=== PATIENT | male | born 1950 | race Caucasian/White ===

== ENCOUNTER 2016-11-29 05:07 | Inpatient (IN) | payer OTHER ==
[~2016-11-29] VITALS: Ht 177.8 cm; Wt 72.6 kg
[~2016-11-29 05:07] MED LIST: ACETAMINOPHEN500 M4 PO; ASPIRIN EC81 M1 PO; AUGMENTIN 875-1 EACH PO; PERCOCET 5-3251 EACH PO; PROBIOTIC1 EACH PO
--- NOTE | 2016-11-29 13:46 | Admission Core Measures ---
Admission Meds I reviewed the following Meds: Current Medications Sig/Amy Start time Last Medication Dose Stop Time Status Admin Cefazolin Sodium 2,000 MG ONCE 11/29 0000 NR (Kefzol-Ancef Inj) 11/29 2358 Metronidazole 500 MG ONCE 11/29 0000 NR (Flagyl) 11/29 2358 Sodium Chloride 100 ML (Normal Saline 0.9%) Acute Coronary Syndrome Inclusion Criteria ACS Diagnosis No Inpatient Core Measures LDL Reminder: If No, please order W/I first 24hr of stay Congestive Heart Failure Inclusion Criteria CHF Diagnosis No Cerebrovascular accident Inclusion Criteria CVA/TIA Diagnosis No Inpatient Core Measures Bedside Swallow Eval Reminder: If BSE failed, place ST order Antithrombotic Reminder: Order Antithrombotic Medication by end of day 2 Antithrombotic Reminder: Document Reason Antithrombotic Not ordered by end of day 2 AFIB/Flutter Reminder: If Present, add to problem list AFIB/Flutter Reminder: Order Anticoag Medication for pts with AFIB/Flutter Atherosclerosis Reminder: If Present, add to problem list LDL Reminder: If No, please order W/I first 24hr of stay PT Order Reminder: If No, please order Venous thromboembolism Inpatient Core Measures VTE Risk Factors: Age > 40, Surgery No [facility] VTE prophylaxis d/t No contraindications No VTE Pharm Prophylaxis d/t No contraindications Inclusion Criteria - Per Current guidelines, there needs to be overlap - treatment for the first 5 days of Warfarin therapy. - Parenteral Anticoagulation (IV or SC) needs to be - given along with Warfarin therapy. VTE Diagnosis No VTE Type NONE VTE Confirmed by (Test) NONE Problem List As ranked by this Provider includes Assessment & Plan 1. Diverticulitis 2. Colostomy status 3. History of colostomy reversal HOME MEDS Home Med List Aspirin (Ecotrin*) 81 MG TABLET. 1 TAB PO DAILY BLOOD THINNER
--- NOTE | 2016-11-29 13:50 | Operative Report ---
Operative/Inv Procedure Report Surgery Date: 11/29/16 Name of Procedure: Laparoscopic takedown/reversal of an end colostomy Pre-Operative Diagnosis: Diverticulitis s/p Hartmanns procedure Post-Operative Diagnosis: Same Estimated Blood Loss: 50ml to 100ml Surgeon/Proof Tester: AUGUSTUS CARBAJAL DO, MD Anesthesia: general endotracheal tube IV Fluids: 1500 cc Drains: 10 Fr RLQ TIAN Drain Specimens: Stoma Complications: None Condition: Stable Operative Indication: This is a 66-year-old male who 6 months status post Camacho's procedure for perforated diverticulitis. Patient underwent appropriate preoperative workup for a colostomy reversal. A laparoscopic possible open colostomy takedown was discussed in detail. All risks including but not limited to bleeding, infection , anastomotic breakdown/complications, DVT/PE, possible need for another ostomy, and mortality were discussed in detail. The patient understood everything and decided to proceed. Operative/Procedure Note Note: The patient was brought to the operating room and placed on operating table in supine position. Venodyne stockings were placed and adequate general endotracheal anesthesia was obtained. The patient was prepped and draped in standard surgical fashion. His colostomy site was closed using running silk suture and the rectal stump was irrigated using Betadine mixed with saline. Patient was placed in lithotomy. A 2 cm midline incision was made just above the umbilicus and carried down through the subcutaneous tissue to the fascia. The fascia was divided in the midline and once we entered the peritoneum 2 stay 0 Vicryl sutures were placed on each side and a 12 mm blunt port was inserted. The abdominal cavity was insufflated to 15 mmHg and a 10 mm 30 lap scope was introduced. Upon initial examination we did note some thin adhesions throughout the abdominal cavity. 5 mm ports are placed, one in the right lateral position and one in the right lower quadrant. Adhesiolysis was then performed taking down all the omentum off the anterior abdominal wall and bringing the small bowel out of the pelvis. We identified the rectal stump and it appeared to be that a long segment was present that was easily mobilized and was coming out of the pelvis free of tension. The proximal colon appeared healthy without any evidence of diverticulosis and once again was adequately mobilized to reach well down into the pelvis. Once all the mobilization was complete we brought our attention to the ostomy site. The skin around the colostomy was incised and the colostomy was circumferentially dissected away from the subcutaneous tissue and the fascia until it was freely up in the air. Segment of the descending colon was resected just proximal to the ostomy site. The colon was then returned into the abdominal cavity, ostomy site fascia was closed using 0 Vicryl suture, and the skin was closed using meena. The abdominal cavity was then reinsufflated and we examined the distal stump and the proximal colon. Given the adequate room/mobilization of the colon and the presence of a long blind stump, a decision was made to do a side to side colocolonic anastomosis. The right lateral port site was upsized to a 12 mm port. A colotomy was made on the descending colon approximately 5 cm from the staple line on the antimesenteric side and another colotomy was made on the distal stump on the antimesenteric side as well. Then using a 60 mm purple Endo RAKESH load a side to side anastomosis was created. The anastomosis was examined and appeared intact and widely patent. The common opening was closed using 2-0 Vicryl suture in a running fashion double layer. At the completion we filled the pelvis with saline and performed an air leak test, no leak was noted. All the fluid and the pelvis was suctioned out, the anastomosis was examined and appeared intact and patent. A 10 Slovak TIAN drain was placed through the right lower quadrant incision into the pelvis. All ports removed under direct visualization, no obvious bleeding was noted. The periumbilical incision was closed using 0 Vicryl suture. The ostomy site was opened up again and was reclosed using a 0 Maxon suture in a running fashion. Ostomy site was irrigated. All incisions were closed using meena. Ostomy site was packed in between the meena with 1 inch iodoform packing. Sterile dressings were placed. The patient was successfully extubated and transferred to the recovery room in stable condition. The patient tolerated the procedure well complications. Findings: Healthy proximal and distal colon, no further evidence of diverticulosis CC: DIDI TATE,JACINTO
--- NOTE | 2016-11-29 15:40 | PN- General Surgery ---
Subjective Subjective: POST-OP NOTE: No complaints. Reports expected incisional pain. No nausea at this time. Denies dizziness. No shortness of breath. No chest pains. Objective Vital Signs and I&Os PACU flowsheet reviewed, u/o adequate Physical Exam: General - alert & oriented x 3. comfortable. no acute distrss. Lungs - clear bilaterally. no w/r/r. Cardiac - s1s2. reg. Abdomen - dressings c/d/i. TIAN drain with serosang drainage. expected genoveva- incisional tenderness. - hunter draining clear, yellow urine. Extremities - warm bilaterally. no c/c/e. calves soft and nontender b/l. Current Medications: Current Medications Sig/Amy Start time Last Medication Dose Route Stop Time Status Admin Cefazolin Sodium 2,000 MG ONCE 11/29 0000 NR IV 11/29 2358 Metronidazole 500 MG ONCE 11/29 0000 NR Sodium Chloride 100 ML IV 11/29 2358 Assessment/Plan Assessment/Plan This 66 year old white male with hx hartmanns procedure for diverticulitis is POD#0 s/p laparoscopic takedown/reversal of an end colostomy ok for sips of clears as tolerated genoveva-operative ancef / flagyl x 2 doses morphine prn pain tylenol / toradol prn pain hep sc - dvt ppx hunter for strict i/o's, to be removed in the morning monitor TIAN drain output f/u am labs colostomy dressing with packing, to be changed POD#2 will d/w Core Measures/Miscellaneous Venous Thromboembolism VTE Risk Factors: Age > 40, Surgery VTE Contraindications: No Contraindications VTE Diagnosis: No VTE Type: NONE VTE Confirmed by (Test): NONE Beta Farhad Is Beta Farhad a Home Med? No Antibiotics Is Patient on Antibiotics? Yes If Yes: prophylaxis
--- NOTE | 2016-11-29 15:44 | NUR ---
PT ARRIVED TO FLOOR FROM PACU. VSS. NO C/O NAUSEA OR PAIN. 4 SURGICAL BANDAGES TO ABD AND TIAN DRAIN. SCANT RED DRAINAGE FROM 2 DRESSINGS ON L ABD. OUTLINED BY THIS RN. WILL CONTINUE TO MONITOR. IV FLUIDS INFUSUING PER EMAR. PT ORIENTED TO ROOM AND EDUCATED MEDICATION RECONCILIATION TECHNICIAN MASCORRO.
[2016-11-29 16:00] VITALS: BP 130/70
[2016-11-29 18:30] VITALS: BP 146/82
[2016-11-29 20:14] VITALS: BP 140/80
[2016-11-29 22:00] VITALS: BP 122/64
[2016-11-30 02:24] VITALS: BP 100/64
--- NOTE | 2016-11-30 07:26 | PN- Student ---
KINA SEAY 11/30/16 0713: Subjective Subjective: Patient is awake, alert, comfortable. Reports some sensation of bloating in the abdomen but denies any pain. Denies SOB/chest pain/fevers/headaches/dyspnea. Has not passed gas yet, is tolerating clears diet well Objective Objective: Vital Signs Result Date Time Pulse Ox 96 12/01 223 B/P 100/64 12/01 223 O2 Delivery Room Air 12/01 223 Temp 99.0 12/01 223 Pulse 69 12/01 223 Resp 20 12/01 223 Intake & Output 11/30 0000 11/29 1600 11/29 0800 Intake Total 850 Output Total 900 Balance -50 Intake, IV 800 Intake, Oral 50 Output, Urine 900 Patient 160 lb Weight General: awake, alert, oriented, NAD Lungs: CTAB, no wheeze/rales/rhonchi Heart: RRR, no M,R,G Abdomen: soft, nondistended, non-edematous, non-erythematous, hypoactive bowel sounds, mildy tender to palpation around incisions, no guarding/rebound Wounds: dressings clean, dry and intact, mildly tender Drains: [address], recently emptied, small collection of serosanguanous fluid Extremities: warm, no erythema/edema, no calf tenderness bilaterally, gross motor and sensory function in tact, ALPS in place Traylor in place - ~ 1L clear yellow urine Results Results: Microbiology 11/29 1045 URINE ROUT: Urine Culture - RECD Assessment/Plan Assessment: This is a 66 y/o male POD #1 laparoscopic colostomy reversal with history significant for Camacho's for perforated diverticulitis. Plan: Diet: Continue clears until return of bowel function Pain: Tylenol PRN DVT ppx: ?subq heparin, ALPS while in bed, OOB and ambulate as tolerated Abx: ? one dose ancef/flagyl for infection prophylaxis Traylor: remove this am Continue TIAN drain Strict I's and O's Stoma packing - change POD #2 Will discuss with attending KAYLEN CUTLER 11/30/16 1231: Assessment/Plan Assessment: Discussed with Dr. Cates, refer to note written by Raheel Black PA-C His addendum to note written by Raheel Luberti PA-C is as follows: ATTENDING ADDENDUM: Patient seen and examined, agree with above. Doing well, no complaints, no GI fxn. AVSS UO good TIAN serosanguinous. Abd-soft. Labs pending. Cont clears, await GI fxn, Colace BID, D/C TIAN later today.
--- NOTE | 2016-11-30 07:38 | PN- General Surgery ---
See Addendum Subjective Subjective: Patient is comfortable, he feels well, he has minimal pain. No flatus yet. Tolerating clears Objective Vital Signs and I&Os Vital Signs Date Time Temp Pulse Resp B/P B/P Pulse O2 O2 Flow FiO2 Mean Ox Delivery Rate 12/01 223 99.0 69 20 100/64 96 Room Air 11/29 2200 98.4 74 20 122/64 97 Room Air 11/29 2013 98.2 68 20 140/80 97 Room Air 11/29 1830 98.3 72 20 146/82 98 Room Air 11/30 1599 98.8 66 18 130/70 98 Room Air Intake & Output 11/30 0800 11/30 0000 11/29 1600 11/29 0800 11/29 0000 11/28 1600 Intake Total 1000 850 Output Total 30 900 Balance 970 -50 Intake, IV 800 800 Intake, Oral 200 50 Output, 30 Drainage Output, Urine 900 Patient 160 lb Weight Physical Exam: Well-developed well-nourished no apparent distress. HEENT: Atraumatic, extraocular motion intact Neck: Supple, no lymphadenopathy Heart: Regular rate and rhythm Respiratory: No respiratory distress clear to auscultation bilateral Abdomen: Soft, mild tenderness in the midline Dressings clean dry and intact Hypoactive bowel sounds Extremities: No edema, no calf pain Neuro: Alert and oriented x3 Psych: Mood affect normal, normal memory normal judgment. Skin: Warm and dry, no rash on exposed skin TIAN drain with 30 mL of output overnight that is bloody. Right-sided TIAN drain noted in place, draining small amount of thin bloody discharge Results Last 48 Hours of Labs: Laboratory Tests 11/30 0710 Chemistry Sodium Pending Potassium Pending Chloride Pending Carbon Dioxide Pending Anion Gap Pending BUN Pending Creatinine Pending BUN/Creatinine Ratio Pending Hematology CBC w Diff Pending WBC Pending RBC Pending Hgb Pending Hct Pending MCV Pending MCH Pending RDW Pending Plt Count Pending MPV Pending PUBS MCHC Pending Assessment/Plan Assessment/Plan 66 yo male hx hartmanns procedure for diverticulitis is POD#1 s/p laparoscopic takedown/reversal of an end colostomy Continue clears, await return of bowel function genoveva-operative ancef / flagyl x 2 doses completed morphine prn pain tylenol / toradol prn pain hep sc - dvt ppx DC Traylor DC IV fluids as patient is tolerating adequate by mouth monitor TIAN drain output f/u am labs Out of bed ad arline. colostomy dressing with packing, to be changed POD#2 will d/w Core Measures/Miscellaneous Venous Thromboembolism VTE Risk Factors: Age > 40, Surgery VTE Contraindications: No Contraindications VTE Diagnosis: No VTE Type: NONE VTE Confirmed by (Test): NONE Beta Farhad Is Beta Farhad a Home Med? No Antibiotics Is Patient on Antibiotics? Yes If Yes: prophylaxis
[2016-11-30 07:44] VITALS: BP 110/70
[2016-11-30 08:40] LABS: ABSOLUTE BASOPHIL COUNT 0 /CUMM (0.0-0.2); ABSOLUTE EOSINOPHIL COUNT 0 /CUMM (0.0-0.7); ABSOLUTE GRANULOCYTE CT 17.1 /CUMM (1.4-6.5); ABSOLUTE LYMPH COUNT 1.4 /CUMM (1.2-3.4); ABSOLUTE MONOCYTE COUNT 1.3 /CUMM (0.10-0.60); BASOPHIL % 0 % (0.0-2.0); EOSINOPHIL % 0 % (0-5); HEMATOCRIT 37.8 % (42-52); MEAN CORPUSCULAR HGB 29.5 PG (27.0-31.0); MEAN CORPUSCULAR HGB CONC 33.3 G/DL (33.0-37.0); MEAN CORPUSCULAR VOLUME 88.6 FL (80.0-94.0); MEAN PLATELET VOLUME 8.8 FL (7.4-10.4); PLATELET COUNT 255 /CUMM (130-400); RBC DISTRIBUTION WIDTH 14.6 % (11.5-14.5); RED BLOOD CELL CT 4.27 /CUMM (4.70-6.10); WHITE BLOOD CELL COUNT 19.8 /CUMM (4.8-10.8)
[2016-11-30 08:59] LABS: GRANULOCYTE % 86.6 % (42.2-75.2)
[2016-11-30 14:31] VITALS: BP 120/70
[2016-11-30 22:06] VITALS: BP 140/74
[2016-12-01 06:29] VITALS: BP 126/66
--- NOTE | 2016-12-01 07:50 | PN- General Surgery ---
Subjective Subjective: Tolerating clears. Trying fulls this morning. "Hungry". No nausea. Passing flatus. Voiding well. Ambulating well. No dizziness. No shortness of breath. No chest pains. Not requiring narcotic pain medication. Eager to try food. Anticipates discharge to home tomorrow with services. Objective Vital Signs and I&Os Vital Signs Date Time Temp Pulse Resp B/P B/P Pulse O2 O2 Flow FiO2 Mean Ox Delivery Rate 12/01 06 99.4 66 20 126/66 98 Room Air 11/30 220 99.1 63 20 140/74 98 Room Air 11/30 1431 98.8 65 20 120/70 94 Room Air Intake & Output 12/01 0800 12/01 0000 11/30 1600 11/30 0811/30 0000 11/29 1600 Intake Total 650 1000 850 Output Total 17 530 1480 900 Balance -17 120 -480 -50 Intake, IV 800 800 Intake, Oral 650 200 50 Output, 17 30 30 Drainage Output, Urine 500 1450 900 Patient 160 lb Weight Physical Exam: General - alert & oriented x 3. out of bed to chair. Lungs - clear bilaterally. no w/r/r. Cardiac - s1s2. reg. Abdomen - soft. active bowel sounds throughout. TIAN drain with scant serosang drainage. colostomy site dressing changed / packing removed. no erythema or gross exudates. packing lightly replaced. interrupted meena approximating site. Expected genoveva-incisional drainage. Extremities - warm bilaterally. no c/c/e. calves soft and nontender b/l. Current Medications: Current Medications Sig/Amy Start time Last Medication Dose Route Stop Time Status Admin Acetaminophen 1,000 MG Q6 11/29 1800 DC 11/30 IV 11/30 1759 0640 Docusate Sodium 100 MG BID 11/29 2199 11/30 PO 2143 Heparin Sodium 5,000 UNIT Q8 11/29 2199 AC 12/01 (Porcine) SC 0559 Ketorolac 30 MG Q6-PRN PRN 11/29 1614 11/30 Tromethamine IV 1757 Morphine Sulfate 2 MG Q2-3 HRS NEEDED.. 11/29 1614 IV Morphine Sulfate 4 MG Q2-3 HRS NEEDED.. 11/29 1614 IV Morphine Sulfate 6 MG Q2-3 HRS NEEDED.. 06/14 1615 AC IV Ondansetron HCl 4 MG Q6P PRN 11/29 1615 AC IV Patient Medication 1 ED .STK-MED ONE 11/30 1405 DC Teaching ED 11/30 1406 Simethicone 80 MG .STK-MED ONE 11/30 1848 DC PO 11/30 1849 Simethicone 40 MG Q6P PRN 11/30 1830 AC PO Results Last 48 Hours of Labs: Laboratory Tests 12/01 11/30 0610 0710 Chemistry Sodium (137 - 145 mmol/L) Pending 136 L Potassium (3.5 - 5.1 mmol/L) Pending 4.3 Chloride (98 - 107 mmol/L) Pending 105 Carbon Dioxide (22 - 30 mmol/L) Pending 23 Anion Gap (5 - 16) Pending 8 BUN (9 - 20 mg/dL) Pending 18 Creatinine (0.7 - 1.2 mg/dL) Pending 1.0 Estimated GFR (>60 ml/min) > 60 BUN/Creatinine Ratio (7 - 25 %) Pending 18.0 Hematology CBC w Diff Pending MAN DIFF ORDERED WBC (4.8 - 10.8 /CUMM) Pending 19.8 H RBC (4.70 - 6.10 /CUMM) Pending 4.27 L Hgb (14.0 - 18.0 G/DL) Pending 12.6 L Hct (42 - 52 %) Pending 37.8 L MCV (80.0 - 94.0 FL) Pending 88.6 MCH (27.0 - 31.0 PG) Pending 29.5 RDW (11.5 - 14.5 %) Pending 14.6 H Plt Count (130 - 400 /CUMM) Pending 255 MPV (7.4 - 10.4 FL) Pending 8.8 Gran % (42.2 - 75.2 %) 86.6 H Lymphocytes % (20.5 - 51.1 %) 6.9 L Monocytes % (1.7 - 9.3 %) 6.5 Eosinophils % (0 - 5 %) 0 Basophils % (0.0 - 2.0 %) 0 L Absolute Granulocytes (1.4 - 6.5 /CUMM) 17.1 H Segmented Neutrophils (42.2 - 75.2 %) 80 H Band Neutrophils (0.0 - 5.0 %) 7 H Absolute Lymphocytes (1.2 - 3.4 /CUMM) 1.4 Lymphocytes (20.5 - 51.1 %) 7 L Monocytes (1.7 - 9.3 %) 6 Absolute Monocytes (0.10 - 0.60 /CUMM) 1.3 H Absolute Eosinophils (0.0 - 0.7 /CUMM) 0 Absolute Basophils (0.0 - 0.2 /CUMM) 0 Platelet Estimate (ADEQUATE) ADEQUATE Normocytic RBCs VERIFIED Normochromic RBCs VERIFIED PUBS MCHC (33.0 - 37.0 G/DL) Pending 33.3 Assessment/Plan Assessment/Plan This 66 year old male with hx hartmanns procedure for diverticulitis is POD#2 s/ p laparoscopic takedown/reversal of an end colostomy tolerating clears. trying fulls this morning. will consider advancing to low residue diet later. d/c iv fluids TIAN drain removed colostomy site dressing changed, lightly with 1 inch iodoform guaze tylenol / toradol prn pain control colace bid oob/ambulation d/c planning for home tomorrow with services will d/w Core Measures/Miscellaneous Venous Thromboembolism VTE Risk Factors: Age > 40, Surgery VTE Contraindications: No Contraindications VTE Diagnosis: No VTE Type: NONE VTE Confirmed by (Test): NONE Beta Farhad Is Beta Farhad a Home Med? No Antibiotics Is Patient on Antibiotics? Yes If Yes: prophylaxis
--- NOTE | 2016-12-01 07:55 | Patient Discharge Instructions ---
Discharge Instructions General Discharge Information You were seen/treated for: Diverticulitis s/p Hartmanns procedure You had these procedures: Surgery Date: 11/29/16 Name of Procedure: Laparoscopic takedown/reversal of an end colostomy Watch for these problems: fever>101.3, increased pain, redness/swelling/drainage Call Surgeon to remove: Meena Do not soak the wound: Yes No bath, but you may shower: Yes Other wound care: 1 inch iodoform guaze packing in between interrupted meena daily with dry gauze to cover site, at old colostomy site Special Instructions: meena to be removed in 10-14 days Diet Continue normal diet: No Recommended Diet: Low Residue Activity Full Activity/No Limits: No Activity Self Limited: Yes Pounds, do NOT lift more than: 10 Other activity limits: no heavy lifting. no strenuous activity. Acute Coronary Syndrome Inclusion Criteria At DC or during hospital stay patient has or had the following: ACS DIAGNOSIS No Discharge Core Measures Meds if any: Prescribed or Continued at Discharge Meds if any: NOT Prescribed or Continued at Discharge Congestive Heart Failure Inclusion Criteria At DC or during hospital stay patient has or had the following: CHF DIAGNOSIS No Discharge Core Measures Meds if any: Prescribed or Continued at Discharge Meds if any: NOT Prescribed or Continued at Discharge Cerebrovascular accident Inclusion Criteria At DC or during hospital stay patient has or had the following: CVA/TIA Diagnosis No Discharge Core Measures Meds if any: Prescribed or Continued at Discharge Meds if any: NOT Prescribed or Continued at Discharge Venous thromboembolism Inclusion Criteria VTE Diagnosis No VTE Type NONE VTE Confirmed by (Test) NONE Discharge Core Measures - Per Current guidelines, there needs to be overlap - treatment for the first 5 days of Warfarin therapy. - If discharged on Warfarin prior to 5 days of - overlap therapy, the patient will need to be - assessed for post discharge needs including - *Post discharge parental anticoagulation - *Warfarin and/or parental anticoagulation education - *Follow up date to check INR post discharge At least 5 days overlap therapy as Inpatient No Meds if any: Prescribed or Continued at Discharge Note: Overlap Therapy is Warfarin and Anticoagulant Meds if any: NOT Prescribed or Continued at Discharge
[2016-12-01] MEDS ORDERED: DOCUSATE SODIU100 M3 PO (07:56)
[2016-12-01] MEDS ORDERED: TYLENOL EXTRA500 M2 PO (07:56)
--- NOTE | 2016-12-01 08:02 | Surgical Discharge Summary ---
Visit Information Visit Dates Admission Date: 11/29/16 Discharge Date: 12/03/15 History of Present Illness Chief Complaint: see h&p Medical History Neurological: NONE EENT: NONE Cardiovascular: NONE Respiratory: NONE Gastrointestinal: NONE Hepatic: NONE Renal: NONE Musculoskeletal: NONE Psychiatric: NONE Endocrine: NONE Blood Disorders: NONE Cancer(s): NONE IMPREGNATOR AND DRIER/Reproductive: NONE History of MRSA: No History of VRE: No History of CDIFF: No Isolation History: Standard Surgical History Pertinent Surgical History: strabismus surgery at 4yo Family History Relations & Conditions If Any: MOTHER, , Age 60+. Bowel disorder, Onset: 40-50. Psychosocial History Who Do You Live With? Patient/Self Services at Home: None What is Your Primary Language? Thai Review of Systems: see h&p Hospital Course Course Attending Physician: AUGUSTUS CARBAJAL DO Primary Care Physician: DIDI TATE,[facility] Course: Electively scheduled laparoscopic takedown/reversal of an end colostomy by on 11/29/16 for history of diverticulitis s/p Hartmanns procedure. Ana-operative antibiotics continued for 24 hours. TIAN drain left in place during surgery removed on post-op day#2. Pain controlled with tylenol and toradol post- operatively. Diet advanced with return of bowel function, to a low residue diet. Colace recommended to continue twice daily at discharge. Home services arranged for continued dressing changes requiring 1 inch iodoform guaze in between interrupted meena at previous colostomy site. Complications: None Allergies: Coded Allergies: No Known Allergies (05/21/16) Disposition Summary Disposition Principal Diagnosis: Diverticulitis s/p Hartmanns procedure Additional Diagnosis: same, s/p Surgery Date: 11/29/16 Name of Procedure: Laparoscopic takedown/reversal of an end colostomy Discharge Disposition: home health services Discharge Instructions General Discharge Information Code Status: Full Code Patient's Diet: low residue diet Patient's Activity: no heavy lifting >10 lbs, no strenuous activity Follow-Up Instructions/Appts: follow up with in 7-10 days home health services arranged for previous colostomy site packing / dressing changes instructed to continue low residue diet with colace twice daily will need meena removed at follow up appointment pre-printed instructions provided Medications at Discharge Discharge Medications: Continue taking these medications: Aspirin (Ecotrin*) 81 MG TABLET. 1 Tablet ORAL DAILY Qty = 1 Comments: Last Taken:05/27/16 Time: 9:30 AM Start taking the following new medications: Docusate Sodium (Docusate Sodium) 100 MG CAPSULE 100 Milligram ORAL TWICE DAILY Qty = 14 No Refills Instructions: stool softener available over the counter, continue for 7-10 days Acetaminophen (Tylenol Extra Strength) 500 MG TABLET 1 Tablet ORAL THREE TIMES DAILY as needed for pain control Days = 7 No Refills Instructions: available over the counter. take as directed, as needed for pain control. Copies To: DIDI TATE,JACINTO
[2016-12-01 09:10] LABS: ABSOLUTE BASOPHIL COUNT 0 /CUMM (0.0-0.2); ABSOLUTE EOSINOPHIL COUNT 0.1 /CUMM (0.0-0.7); ABSOLUTE GRANULOCYTE CT 11.5 /CUMM (1.4-6.5); ABSOLUTE LYMPH COUNT 1.7 /CUMM (1.2-3.4); ABSOLUTE MONOCYTE COUNT 0.8 /CUMM (0.10-0.60); BASOPHIL % 0.3 % (0.0-2.0); EOSINOPHIL % 0.5 % (0-5); GRANULOCYTE % 81.1 % (42.2-75.2); HEMATOCRIT 35.6 % (42-52); MEAN CORPUSCULAR HGB 29.4 PG (27.0-31.0); MEAN CORPUSCULAR HGB CONC 33.2 G/DL (33.0-37.0); MEAN CORPUSCULAR VOLUME 88.6 FL (80.0-94.0); MEAN PLATELET VOLUME 9.4 FL (7.4-10.4); PLATELET COUNT 229 /CUMM (130-400); RBC DISTRIBUTION WIDTH 14.3 % (11.5-14.5); RED BLOOD CELL CT 4.02 /CUMM (4.70-6.10); WHITE BLOOD CELL COUNT 14.1 /CUMM (4.8-10.8)
[2016-12-01 14:30] VITALS: BP 128/70
[2016-12-01 22:54] VITALS: BP 132/70
[2016-12-02 08:48] VITALS: BP 124/72
--- NOTE | 2016-12-02 11:52 | PN- General Surgery ---
Subjective Subjective: Patient tolerating diet, has had two bowel movements. No difficulty voiding. Denies nausea and vomitting. Denies chest pain, shortness of breath and difficulty breathing. Has been ambulating. Claims he is pain free. Objective Vital Signs and I&Os Vital Signs Date Time Temp Pulse Resp B/P B/P Pulse O2 O2 Flow FiO2 Mean Ox Delivery Rate 12/02 0848 98.6 82 16 124/72 99 Room Air 12/01 2254 99.0 81 18 132/70 98 Room Air 12/01 2247 99.0 12/01 2148 100.1 12/01 2100 100.1 12/01 1430 98.7 86 18 128/70 97 Room Air Intake & Output 12/02 1600 12/02 0800 12/02 0000 12/01 1600 12/01 0800 12/01 0000 Intake Total 150 480 550 Output Total 17 Balance 150 480 550 -17 Intake, Oral 150 480 550 Output, 17 Drainage Physical Exam: General: Alert and oriented x3, no acute distress Cardiac: RRR, s1s2 Pulm: CTA bilaterally ABD: Soft, non-distended, normoactive bowel sounds. packing change, no purulence noted Extremities: Moves all extremities, distal sensation intact, bilateral calves soft and non-tender Assessment/Plan Assessment/Plan This is a 66 year old male, POD3, s/p colostomy reversal, bowel function has returned -Continue daily packing changes to stoma site -Diet: Low res as tolerated -Anticiapte discharge to home today with [facility] -Will d/w Dr. Cates Core Measures/Miscellaneous Venous Thromboembolism VTE Risk Factors: Age > 40, Surgery VTE Contraindications: No Contraindications VTE Diagnosis: No VTE Type: NONE VTE Confirmed by (Test): NONE Beta Farhad Is Beta Farhad a Home Med? No Antibiotics Is Patient on Antibiotics? Yes If Yes: prophylaxis
== END 2016-12-02 12:00 | disposition home health service (06) | DRG 331 ==
LOC: SDA 05:07 → ENRESERV 14:36 → ENTRNSPT 15:37 → 2NA 15:54 → CMPTRNSPT 15:59 → 2NA 18:02
PROVIDERS: Nurse Practitioner; Physician Assistant; ADMIT Surgery
PROC: 0DBE4ZZ Excision of Large Intestine, Percutaneous Endoscopic Approach (ICD-10-PCS; principal; 2016-11-29)
DX: Z43.3 Encounter for attention to colostomy (principal); I10 Essential (primary) hypertension; E78.00 Pure hypercholesterolemia, unspecified
CPT/HCPCS: 2NAP; 82436; 87086; J0131; J0690; J1100; J1644; J1885; J2405; J7042